=== PATIENT | male | born 1980 | race Caucasian/White ===

== ENCOUNTER 2017-03-26 11:30 | Emergency (ER) | payer OTHER ==
[~2017-03-26] VITALS: Ht 175.3 cm; Wt 108.0 kg
[2017-03-26] MEDS ORDERED: ATARAX,VISTARIL25 MG PO (12:19)
[2017-03-26] MEDS ORDERED: PREDNISONE5 M1 PO (12:19)
[2017-03-26 12:54] VITALS: BP 133/82
== END 2017-03-26 12:54 | disposition home or self-care (01) ==
LOC: EME 11:30
DX: L23.9 Allergic contact dermatitis, unspecified cause (principal); F17.200 Nicotine dependence, unspecified, uncomplicated
CPT/HCPCS: 99281; 99283